=== PATIENT | female | born 1980 | race Caucasian/White ===

== ENCOUNTER 2023-11-19 10:49 | Emergency (ER) | payer BC ==
[2023-11-19] MEDS ORDERED: ACETAMINOPHEN 325 MG TABLET (FP) ONE (11:26)
[2023-11-19] MEDS: ACETAMINOPHEN 325 MG TABLET (FP) PO ONE (11:46)
[2023-11-19 11:52] VITALS: TEMP 97.9; BMI 20.3
[2023-11-19 11:57] LABS: HEMOGLOBIN 12.8 G/dL (10.7-15.3); MCH 26.8 pg (25.7-33.7); MCHC 31.9 g/dl (32.0-36.0); MEAN CELL VOLUME 84.1 fl (80-96); MEAN PLT VOLUME 7.4 fl (7.5-11.1); PLATELET COUNT 259.8 10^3/uL (134-434); RBC 4.76 10^6/uL (3.60-5.2); RDW 15.6 % (11.6-15.6); WHITE BLOOD COUNT 7.5 10^3/uL (4.0-10.8)
[2023-11-19 12:11] LABS: ALBUMIN 4.1 g/dl (3.4-5.0); ALK PHOS 38 U/L (45-117); ANION GAP 8 mmol/L (4-13); BILIRUBIN,TOTAL 0.4 mg/dl (0.2-1); CALCIUM 9.2 mg/dl (8.5-10.1); CHLORIDE 106 mmol/L (98-107); CO2 28 mmol/L (21-32); CREATININE 0.7 mg/dl (0.6-1.3); GLUCOSE,RANDOM 103 mg/dl (74-106); POTASSIUM 3.7 mmol/L (3.5-5.1); SGOT/AST 13 U/L (15-37); SGPT/ALT 11 U/L (7-52); SODIUM 142 mmol/L (136-145); TOT PROT 6.4 g/dl (6.4-8.2)
[2023-11-19 12:32] LABS: ANISOCYTOSIS 1+; PLATELET ESTIMATE ADEQUATE
[2023-11-19] MEDS ORDERED: IBUPROFEN 400 MG TABLET (FP) PO ONE (12:39)
[2023-11-19] MEDS: IBUPROFEN 400 MG TABLET (FP) PO ONE (12:42)
[2023-11-19 13:29] VITALS: BP 132/89; PULSE 76; RESP 16
== END 2023-11-19 13:25 | disposition home or self-care (01) ==
LOC: FER 10:49
DX: R07.9 Chest pain, unspecified (principal); M54.6 Pain in thoracic spine; R05.1 Acute cough; Z20.822 Contact with and (suspected) exposure to COVID-19
CPT/HCPCS: 0241U-QW; 36415; 71046-TC-FY; 80053; 82550; 84484; 85027; 85379; 93005; 99285-25